=== PATIENT | female | born 1955 | race Two or more races ===

== ENCOUNTER 2019-04-29 14:26 | Emergency (ER) | payer OTHER ==
[~2019-04-29] VITALS: Ht 152.4 cm; Wt 72.6 kg
[2019-04-29] MEDS ORDERED: LACT10SO58 PO (14:50)
[2019-04-29] MEDS ORDERED: PALI234D IM (14:50)
[2019-04-29] MEDS ORDERED: VALP250S3 PO (14:50)
[2019-04-29] MEDS ORDERED: AMLO5TAB9 PO (14:50)
[2019-04-29] MEDS ORDERED: CLON1TAB12 PO (14:50)
[2019-04-29] MEDS ORDERED: CHOL200059 PO (14:50)
[2019-04-29] MEDS ORDERED: LISI-603 PO (14:50)
[2019-04-29] MEDS ORDERED: CALC500T89 PO (14:50)
[2019-04-29] MEDS ORDERED: ASPI81TA31 PO (14:50)
[2019-04-29] MEDS ORDERED: METF-440 PO (14:50)
[2019-04-29] MEDS ORDERED: SIMV10TA98 PO (14:50)
--- NOTE | 2019-04-29 15:23 | NUR ---
pt evaluated by aniket miramontes of affected limb done at bedside.
--- NOTE | 2019-04-29 15:37 | NUR ---
AMBULANCE WAS CALLED TICKET NUMBER [id number] ETA [id number].
[2019-04-29 16:19] VITALS: BP 105/60
--- NOTE | 2019-04-29 16:20 | NUR ---
Report given to [employer], Patient discharged in stable conditon. Written and verbal after care instructions given. Pt left ER via gurney, all belongings sent w/ pt.
== END 2019-04-29 16:22 | disposition home or self-care (01) ==
LOC: ER 14:29
DX: S80.12XA Contusion of left lower leg, initial encounter (principal); Z79.82 Long term (current) use of aspirin; Z79.899 Other long term (current) drug therapy; W18.39XA Other fall on same level, initial encounter; Y93.89 Activity, other specified; Y92.89 Other specified places as the place of occurrence of the external cause; Y99.8 Other external cause status
CPT/HCPCS: 73590; 73610; A4663

== ENCOUNTER 2019-05-05 14:47 | Emergency (ER) | payer OTHER ==
[~2019-05-05] VITALS: Ht 152.4 cm; Wt 77.1 kg
[~2019-05-05 14:47] MED LIST: AMLO5TAB9 PO; ASPI81TA31 PO; CALC500T89 PO; CHOL200059 PO; CLON1TAB12 PO; LACT10SO58 PO; LISI-603 PO; METF-440 PO; PALI234D IM; SIMV10TA98 PO; VALP250S3 PO
[2019-05-05] MEDS ORDERED: NYST5ORA TP (15:13)
[2019-05-05] MEDS ORDERED: ERGO500040 PO (15:13)
[2019-05-05] MEDS ORDERED: TRAZ-182 PO (15:13)
--- NOTE | 2019-05-05 15:40 | NUR ---
Dr Hilliard at the bedside for MSE.
[2019-05-05] MEDS ORDERED: IV NORMAL SALINE 500 ML BAG IV ONE (15:45)
[2019-05-05 16:30] LABS: BASOPHILS % (AUTO) 0.2 % (0.0-2.0); HEMATOCRIT 36.3 % (31.2-41.9); HEMOGLOBIN 12.1 g/dL (10.9-14.3); LYMPHOCYTES # (AUTO) 1.4 K/uL (20.0-40.0); LYMPHOCYTES % (AUTO) 20.6 % (20.5-51.5); MEAN CORPUSCULAR HEMOGLOBIN 32.1 uug (24.7-32.8); MEAN CORPUSCULAR HGB CONC 33 g/dL (32.3-35.6); MONOCYTES # (AUTO) 0.9 K/uL (2.0-10.0); MONOCYTES % (AUTO) 12.1 % (0.0-11.0); NEUTROPHILS # (AUTO) 4.7 K/uL (1.8-8.9); NEUTROPHILS % (AUTO) 67.1 % (38.5-71.5); PLATELET COUNT (AUTO) 227 K/uL (179-408); RED BLOOD CELL COUNT(AUTO) 3.78 MIL/uL (3.63-4.92)
[2019-05-05 16:47] LABS: ALANINE AMINOTRANSFERASE 24 U/L (14-59); ALKALINE PHOSPHATASE 56 U/L (50-136); ASPARTATE AMINOTRANSFERASE 14 U/L (15-37); BILIRUBIN,DIRECT 0.1 mg/dL (0.0-0.2); BILIRUBIN,TOTAL 0.2 mg/dL (0.2-1.0); CARBON DIOXIDE 28 mmol/L (21-32); CREATININE 0.9 mg/dL (0.6-1.3); GLUCOSE 98 mg/dL (74-106); TOTAL PROTEIN, SERUM 7.4 g/dL (6.4-8.2); UREA NITROGEN, BLOOD 22 mg/dL (7-18)
[2019-05-05 16:48] LABS: ACETAMINOPHEN < 2.0 ug/mL (10-30); CHLORIDE 103 mmol/L (98-107); POTASSIUM 3.9 mmol/L (3.5-5.1)
[2019-05-05 17:15] LABS: ETHANOL < 3 MG/DL (0-0); THYROID STIMULATING HORMONE 1.167 mIU/mL (0.358-3.740)
--- NOTE | 2019-05-05 17:55 | NUR ---
Hospital dinner tray provided, pt able to feed self.
--- NOTE | 2019-05-05 19:18 | NUR ---
Patient awake and oriented to self. Breathing even and unlabored. able to follow simple commands. NAD noted
--- NOTE | 2019-05-05 20:25 | NUR ---
Patient discharged to [facility] assisted living via [id number] in stable conditon. Written and verbal after care instructions given. all belongings given to patient.
[2019-05-05 20:37] VITALS: BP 114/53
== END 2019-05-05 20:25 | disposition home or self-care (01) ==
LOC: ER 14:51
DX: Z00.00 Encounter for general adult medical examination without abnormal findings (principal); I10 Essential (primary) hypertension; E11.9 Type 2 diabetes mellitus without complications; E78.5 Hyperlipidemia, unspecified; F20.9 Schizophrenia, unspecified; F03.90 Unspecified dementia, unspecified severity, without behavioral disturbance, psychotic disturbance, mood disturbance, and anxiety; Z79.82 Long term (current) use of aspirin; Z79.899 Other long term (current) drug therapy
CPT/HCPCS: 70450; 71045; 80048; 80076; 80164; 82140; 84443; 84484; 85025; 85730; 93005; 99284; G0480 ×2; G0481; 36415; 70030-TC; A4663; J7040